=== PATIENT | male | born 1985 | race Caucasian/White ===

== ENCOUNTER 2018-12-01 15:52 | Inpatient (IN) | payer OTHER ==
[~2018-12-01] VITALS: Ht 185.4 cm; Wt 104.3 kg
--- NOTE | 2018-12-01 15:40 | NUR ---
MS RN NOTES RECEIVED REPORT FROM RNFABIO AT [facility]. PT WILL ARRIVE IN 1 HOUR
--- NOTE | 2018-12-01 16:50 | NUR ---
MS RN NOTES PT ARRIVED VIA GURNEY WITH AMBULANCE CREW FROM [facility]. DR OSUNA NOTIFIED. DR ASSESSED PT AT BEDSIDE. DR AWARE OF HOME MEDS. INITIAL ADMISSION INTERVIEW DONE. ORIENTED PT TO ROOM. BED IN LOCKED/LOWEST POSITION. CALL LIGHT IN REACH.
[2018-12-01 17:00] VITALS: BP 132/81
[2018-12-01] MEDS ORDERED: ZOLPIDEM TARTRATE 5 MG TABLET PO PRN (17:00)
[2018-12-01] MEDS ORDERED: MAGNESIUM HYDROXIDE 30 ML UDC PO PRN (17:00)
[2018-12-01] MEDS ORDERED: ACETAMINOPHEN 325 MG TABLET PO PRN (17:00)
[2018-12-01] MEDS ORDERED: MAG HYDROX/AL HYDROX/SIMETH 30 ML UDC PO PRN (17:00)
[2018-12-01] MEDS ORDERED: Z GUARD REMEDY 2 OZ OINT TP PRN (17:00)
[2018-12-01] MEDS ORDERED: ONDANSETRON HCL/PF 4 MG/2 ML VIAL IVP PRN (17:00)
--- NOTE | 2018-12-01 17:00 | NUR ---
MS RN NOTES PT REFUSED ADMITTING PICS OF WOUNDS
[2018-12-01 17:48] LABS: BASOPHILS % (AUTO) 0.2 % (0.0-2.0); HEMATOCRIT 45 % (39-51); HEMOGLOBIN 15.1 g/dL (13.5-17.5); LYMPHOCYTES # (AUTO) 2.2 /CMM (0.8-4.8); LYMPHOCYTES % (AUTO) 23.1 % (20.0-44.0); MEAN CORPUSCULAR HGB CONC 34 g/dl (31.0-36.0); MEAN CORPUSCULAR VOLUME 97 fL (80-96); MONOCYTES # (AUTO) 0.7 /CMM (0.1-1.30); MONOCYTES % (AUTO) 6.9 % (2.0-12.0); NEUTROPHILS # (AUTO) 6.5 /CMM (1.8-8.9); NEUTROPHILS % (AUTO) 67.8 % (43.0-81.0); PLATELET COUNT (AUTO) 295 /CMM (150-450); WHITE BLOOD COUNT (AUTO) 9.7 K/uL (4.3-11.0)
[2018-12-01 18:07] LABS: CALCIUM, SERUM 8.4 mg/dL (8.5-10.1); CREATININE 0.9 mg/dL (0.6-1.3); POTASSIUM 3.8 mmol/L (3.5-5.1)
[2018-12-01 18:12] LABS: ALBUMIN 3.4 g/dL (3.4-5.0); BILIRUBIN,TOTAL 0.3 mg/dL (0.2-1.0); TOTAL PROTEIN, SERUM 7.1 g/dL (6.4-8.2)
[2018-12-01] MEDS ORDERED: FEE PK DOSING 1 MIN EA MC ONE (18:29)
--- NOTE | 2018-12-01 19:33 | NUR ---
MS RN NOTES ENDORSED PT TO PM NURSE FOR BASIA. PT RESTING IN BED. ALL NEEDS ATTENDED TO.
[2018-12-01 20:00] VITALS: BP 129/76
[2018-12-01] MEDS ORDERED: VANCOMYCIN 1.25 GM in IV D5W 500 ML IV SCH ×2 (20:00→22:49)
--- NOTE | 2018-12-01 20:00 | NUR ---
MS1/RN RECEIVED PATIENT AWAKE, ALERT, ORIENTED, CALM AND COMFORTABLE, NO C/O PAIN, NO DISTRESS NOTED, CALL LIGHT IN REACH. WILL MONITOR.
[2018-12-01] MEDS ORDERED: CLON0.1T PO (20:11)
[2018-12-01] MEDS ORDERED: OLAN15TA3 PO (20:11)
[2018-12-01] MEDS ORDERED: LORA1TAB PO (20:11)
[2018-12-01] MEDS ORDERED: OLAN5TAB3 PO (20:11)
[2018-12-01] MEDS: METRONIDAZOLE 500MG/ NS 100ML 500 MG in PREMIX 1 EA IV SCH (21:02)
[2018-12-01] MEDS: OLANZAPINE 5 MG TABLET PO SCH (21:30)
[2018-12-01] MEDS: LORAZEPAM 1 MG TABLET PO SCH (21:30)
[2018-12-01 21:38] LABS: APPEARANCE,URINE SL CLOUDY (CLEAR); BILIRUBIN,URINE NEGATIVE (NEGATIVE); BLOOD, URINE NEGATIVE Ery/uL (NEGATIVE); COLOR,URINE YELLOW (YELLOW); KETONES,URINE NEGATIVE (NEGATIVE); LEUKOCYTE ESTERASE ,URINE NEGATIVE (NEGATIVE); NITRITE, URINE NEGATIVE (NEGATIVE); PH,URINE 5.5 (5.0-8.0); PROTEIN,URINE NEGATIVE (NEGATIVE); UGLUCOSE NEGATIVE (NEGATIVE); UROBILINOGEN,URINE 0.2 EU/dL (0.2)
--- NOTE | 2018-12-01 21:53 | NUR ---
MS1/RN PATIENT WAS MOVED TO 117-1 TO ACCOMMODATE PATIENT REQUIRING A SITTER.
[2018-12-01] MEDS: LEVOFLOXACIN 500 MG /D5W 100ML 500 MG in PREMIX 1 EA IV SCH (22:34)
--- NOTE | 2018-12-02 00:53 | NUR ---
MS1/RN PATIENT IS SLEEPING AT THIS TIME, AROUSABLE, APPEAR COMFORTABLE, NO DISTRESS NOTED, CALL LIGHT IN REACH. WILL CONTINUE TO MONITOR.
[2018-12-02] MEDS: METRONIDAZOLE 500MG/ NS 100ML 500 MG in PREMIX 1 EA IV SCH ×3 (03:53→19:11)
[2018-12-02 04:00] VITALS: BP 120/77
--- NOTE | 2018-12-02 06:25 | NUR ---
MS1/RN PATIENT IS STILL SLEEPING AT THIS TIME, APPEAR COMFORTABLE, NO DISTRESS NOTED, ALL NEEDS ATTENDED AT THIS TIME, WILL CONTINUE TO MONITOR.
--- NOTE | 2018-12-02 07:05 | NUR ---
MS RN OPENING NOTES RECEIVED PT LYING ON BED.ALERT/ORIENTED X4.ON ROOM AIR,TOLERATING WELL.NO SOB AND ACUTE DISTRESS NOTED.IV LINE IS ON RIGHT AC,SITE IS CLEAN,DRY AND INTACT.SAFETY IS MAINTAINED AT ALL TIMES.BED IS IN LOW POSITION AND LOCKED.CALL LIGHT IS WITHIN REACH.WILL CONTINUE TO MONITOR THE PT CLOSELY.
[2018-12-02 07:21] LABS: BASOPHILS # (AUTO) 0.1 /CMM (0.0-0.2); BASOPHILS % (AUTO) 1.1 % (0.0-2.0); EOSINOPHILS % (AUTO) 2.1 % (0.0-6.0); HEMATOCRIT 43 % (39-51); HEMOGLOBIN 14.6 g/dL (13.5-17.5); LYMPHOCYTES # (AUTO) 1.7 /CMM (0.8-4.8); LYMPHOCYTES % (AUTO) 19.3 % (20.0-44.0); MEAN CORPUSCULAR HGB CONC 34 g/dl (31.0-36.0); MEAN CORPUSCULAR VOLUME 97 fL (80-96); MONOCYTES # (AUTO) 0.8 /CMM (0.1-1.30); MONOCYTES % (AUTO) 8.5 % (2.0-12.0); NEUTROPHILS # (AUTO) 6.2 /CMM (1.8-8.9); PLATELET COUNT (AUTO) 276 /CMM (150-450); RED BLOOD CELL COUNT(AUTO) 4.38 MIL/uL (4.5-6.0)
[2018-12-02 07:32] LABS: CALCIUM, SERUM 8.8 mg/dL (8.5-10.1); CREATININE 0.8 mg/dL (0.6-1.3); POTASSIUM 3.8 mmol/L (3.5-5.1)
[2018-12-02 07:50] LABS: THYROID STIMULATING HORMONE 7.469 uIU/mL (0.358-3.74)
[2018-12-02 08:00] VITALS: BP 122/79
[2018-12-02] MEDS ORDERED: VANCOMYCIN 1.25 GM in IV D5W 500 ML IV SCH (08:00)
[2018-12-02] MEDS: OLANZAPINE 5 MG TABLET PO SCH ×2 (08:24→21:02)
[2018-12-02] MEDS: CLONIDINE HCL 0.1 MG TABLET PO SCH ×2 (08:24→17:01)
[2018-12-02] MEDS: HYDROCODONE/APAP 5/325MG 1 EACH TABLET PO PRN ×3 (10:20→21:02)
--- NOTE | 2018-12-02 12:15 | NUR ---
MS RN NOTES CATHY ACUÑA SEEN THE PT AND DONE THE I &D ON LEFT THIGH.PT TOLERATED WELL AND SEND THE SAMPLE FOR WOUND CULTURE.
[2018-12-02] MEDS ORDERED: LIDOCAINE 2%-EPI 1:100,000 30 ML VIAL TP STA (12:24)
[2018-12-02] MEDS: LEVOFLOXACIN 500 MG /D5W 100ML 500 MG in PREMIX 1 EA IV SCH (17:01)
--- NOTE | 2018-12-02 18:37 | NUR ---
MS RN CLOSING NOTES PT IS LYING ON BED.ALERT/ORIENTED X2.ON ROOM AIR,TOLERATING WELL.RESPIRATION IS EVEN AND NON LABORED.I&D HAS DONE.NO PAIN NOTED FOR NOW.ALL THE DUE MEDS ARE GIVEN.ENDORSED TO ROUTE MANAGER RN FOR [facility].
--- NOTE | 2018-12-02 20:17 | NUR ---
RN MS OPENING NOTES RECEIVED PT IN BED, AWAKE ALERT ORIENTEDX4 BREATHING EVEN AND UNLABORED ON ROOM AIR. NO COUGH CONGESTION OR SOB. NO COMPLAINT OF PAIN OR DISCOMFORT AT THIS TIMES, IV ACCESS ON THE R AC SL. BED IN LOEST LOCKED POSITION ,CALL LIGHT WITHIN REACH AT ALL TIMES WILL CONTINUE TO MONITOR.
[2018-12-02 21:00] VITALS: BP 114/85
[2018-12-02] MEDS: LORAZEPAM 1 MG TABLET PO SCH (21:02)
[2018-12-03] MEDS: METRONIDAZOLE 500MG/ NS 100ML 500 MG in PREMIX 1 EA IV SCH ×2 (01:08→09:21)
[2018-12-03] MEDS: HYDROCODONE/APAP 5/325MG 1 EACH TABLET PO PRN ×2 (01:20→09:23)
[2018-12-03] MEDS ORDERED: VANCOMYCIN 1.25 GM in IV D5W 500 ML IV SCH (04:00)
[2018-12-03 05:00] VITALS: BP 126/81
--- NOTE | 2018-12-03 06:54 | NUR ---
RN MS CLOSING NOTES PT REMAINS IN BED, AWAKE ALERT ORIENTEDX4 BREATHING EVEN AND UNLABORED ON ROOM AIR. NO COUGH CONGESTION OR SOB. NO COMPLAINT OF PAIN OR DISCOMFORT AT THIS TIMES, IV ACCESS ON THE R FA #20 SL. L THIGH DRESSING CHANGED. BED IN LOWEST LOCKED POSITION ,CALL LIGHT WITHIN REACH AT ALL TIMES WILL ENDORSE TO DAY NURSE FOR [facility]IA
[2018-12-03 07:07] LABS: BASOPHILS % (AUTO) 0.7 % (0.0-2.0); EOSINOPHILS % (AUTO) 4.3 % (0.0-6.0); HEMATOCRIT 43 % (39-51); HEMOGLOBIN 14.6 g/dL (13.5-17.5); LYMPHOCYTES % (AUTO) 31.3 % (20.0-44.0); MEAN CORPUSCULAR HGB CONC 34 g/dl (31.0-36.0); MEAN CORPUSCULAR VOLUME 98 fL (80-96); MONOCYTES # (AUTO) 0.5 /CMM (0.1-1.30); MONOCYTES % (AUTO) 8.4 % (2.0-12.0); NEUTROPHILS # (AUTO) 3.5 /CMM (1.8-8.9); NEUTROPHILS % (AUTO) 55.3 % (43.0-81.0); PLATELET COUNT (AUTO) 264 /CMM (150-450); RED BLOOD CELL COUNT(AUTO) 4.38 MIL/uL (4.5-6.0); WHITE BLOOD COUNT (AUTO) 6.4 K/uL (4.3-11.0)
[2018-12-03 07:09] LABS: CALCIUM, SERUM 8.5 mg/dL (8.5-10.1); CREATININE 0.8 mg/dL (0.6-1.3); MAGNESIUM 2.1 mg/dL (1.8-2.4); PHOSPHORUS 3.6 mg/dL (2.5-4.9); POTASSIUM 3.7 mmol/L (3.5-5.1)
[2018-12-03 08:00] VITALS: BP 116/86
[2018-12-03 09:21] VITALS: BP 124/82
[2018-12-03] MEDS: CLONIDINE HCL 0.1 MG TABLET PO SCH (09:21)
[2018-12-03] MEDS: OLANZAPINE 5 MG TABLET PO SCH (09:22)
[2018-12-03] MEDS ORDERED: SULF1TAB47 PO (11:59)
[2018-12-03] MEDS ORDERED: HYDR-4384 PO (11:59)
--- NOTE | 2018-12-03 13:50 | NUR ---
Reviewed discharge instructions and current med list with patient and his mother. Pt stated he had no question or concerns at this time. #[id number] d/c with tip intact. dry dsg applied to old PIV. Walked patient to the front door for discharge with mother by this side. Signing off care for this pt.
== END 2018-12-03 13:30 | disposition home or self-care (01) | DRG 383 ==
LOC: MEDSG1 16:38
PROVIDERS: ADMIT Student in an Organized Health Care Education/Training Program; ATTEND Student in an Organized Health Care Education/Training Program
PROC: 0H9JXZZ Drainage of Left Upper Leg Skin, External Approach (ICD-10-PCS; principal; 2018-12-02)
DX: L02.416 Cutaneous abscess of left lower limb (principal); L02.214 Cutaneous abscess of groin; L03.314 Cellulitis of groin; I10 Essential (primary) hypertension; E03.9 Hypothyroidism, unspecified; F31.9 Bipolar disorder, unspecified; Z88.0 Allergy status to penicillin; F41.9 Anxiety disorder, unspecified; F17.210 Nicotine dependence, cigarettes, uncomplicated; Z82.49 Family history of ischemic heart disease and other diseases of the circulatory system
CPT/HCPCS: 36415; 80048-TC; 80053-TC; 80061-TC; 80202-TC; 80305; 81000-TC; 83605-TC; 83735-TC; 84100-TC; 84439-TC; 84443-TC; 85025-TC; 87040-TC; 87070-TC; 87081-TC; 87186-TC; 87806; A4216; A6402; A6407; G0378; J1956; J3370; J3490; J7030; J7040; J7060

== ENCOUNTER 2021-04-16 14:07 | Emergency (ER) | payer MEDICAID, OTHER ==
[~2021-04-16] VITALS: Ht 185.4 cm; Wt 105.7 kg
[~2021-04-16 14:07] MED LIST: CLON0.1T PO; HYDR-4384 PO; LORA1TAB PO; OLAN15TA3 PO; OLAN5TAB3 PO; SULF1TAB47 PO
--- NOTE | 2021-04-16 14:07 | NUR ---
PT BIBPA FROM [facility] C/O SI IDEATION NO SPECIFIC PLAN. PT IS AAOX4, NOT IN RESPIRATORY DISTRESS, V/S STABLE, KEPT RESTED AND COMFORTABLE. SITTER AT BEDSIDE. WILL CONTINUE TO MONITOR.
--- NOTE | 2021-04-16 14:15 | NUR ---
URINAL GIVEN BUT UNABLE TO PROVIDE URINE SPECIMEN THIS TIME.
--- NOTE | 2021-04-16 14:19 | NUR ---
SEEN AND EXAMINED BY .
--- NOTE | 2021-04-16 14:31 | NUR ---
ER PHLEB AT BEDSIDE FOR BLOOD DRAW.
[2021-04-16 14:40] LABS: BASOPHILS % (AUTO) 0.4 % (0.0-2.0); EOSINOPHILS % (AUTO) 1.6 % (0.0-6.0); HEMATOCRIT 43 % (39-51); HEMOGLOBIN 14.1 g/dL (13.5-17.5); LYMPHOCYTES % (AUTO) 30.8 % (20.0-44.0); MEAN CORPUSCULAR HGB CONC 33 g/dl (31.0-36.0); MEAN CORPUSCULAR VOLUME 92 fL (80-96); MONOCYTES # (AUTO) 0.8 /CMM (0.1-1.30); MONOCYTES % (AUTO) 8.3 % (2.0-12.0); NEUTROPHILS # (AUTO) 5.7 /CMM (1.8-8.9); NEUTROPHILS % (AUTO) 58.9 % (43.0-81.0); PLATELET COUNT (AUTO) 289 /CMM (150-450); RED BLOOD CELL COUNT(AUTO) 4.61 MIL/uL (4.5-6.0); WHITE BLOOD COUNT (AUTO) 9.7 K/uL (4.3-11.0)
[2021-04-16 14:56] LABS: CALCIUM, SERUM 8.9 mg/dL (8.5-10.1); CARBON DIOXIDE 24 mmol/L (21-32); CHLORIDE 105 mmol/L (98-107); CREATININE 0.9 mg/dL (0.6-1.3); GLUCOSE 113 mg/dL (74-106); POTASSIUM 3.4 mmol/L (3.5-5.1); SODIUM SERUM 139 mmol/L (136-145); UREA NITROGEN, BLOOD 10 mg/dL (7-18)
[2021-04-16 15:11] LABS: ALANINE AMINOTRANSFERASE 30 U/L (12-78); ALBUMIN 3.7 g/dL (3.4-5.0); ALKALINE PHOSPHATASE 105 U/L (46-116); ASPARTATE AMINOTRANSFERASE 21 U/L (15-37); BILIRUBIN,DIRECT 0.1 mg/dL (0.0-0.2); BILIRUBIN,TOTAL 0.2 mg/dL (0.2-1.0); TOTAL PROTEIN, SERUM 7.2 g/dL (6.4-8.2)
[2021-04-16 15:12] LABS: ACETAMINOPHEN < 0 ug/ml (10-30); ALCOHOL, BLOOD < 3 mg/dL (0-0)
[2021-04-16 16:05] LABS: BILIRUBIN,URINE Negative (NEGATIVE); COLOR,URINE YELLOW (YELLOW); LEUKOCYTE ESTERASE ,URINE Small (NEGATIVE); NITRITE, URINE Negative (NEGATIVE); PROTEIN,URINE Negative (NEGATIVE); UGLUCOSE Negative (NEGATIVE); UROBILINOGEN,URINE 0.2 EU/dL (0.2)
[2021-04-16 16:06] LABS: BACTERIA,URINE None seen /HPF (None Seen); SQUAMOUS EPITHELIAL CELL,UR Few /HPF (None Seen)
[2021-04-16] MEDS ORDERED: SULFAMETH/TRIMETH 800/160 MG 1 UDTAB TABLET PO ONE (16:30)
[2021-04-16] MEDS ORDERED: POTASSIUM CHLORIDE 20 MEQ TAB.PRT.SR PO ONE ×2 (16:30→17:03)
[2021-04-16] MEDS ORDERED: SULFAMETH/TRIMETH 800/160 MG 1 UDTAB TABLET ONE (17:03)
--- NOTE | 2021-04-16 17:07 | NUR ---
BALA CASILLAS [phone] WILL BE HERE IN AN HOUR OR SO.
--- NOTE | 2021-04-16 17:10 | NUR ---
FOOD TRAY PROVIDED.
--- NOTE | 2021-04-16 18:12 | NUR ---
[facility]
[2021-04-16 21:40] VITALS: BP 132/81
--- NOTE | 2021-04-16 23:01 | NUR ---
BETH CURIEL FROM [facility], PT OK TO GO TO [facility] FOR REPORT [phone] UNIT 2
--- NOTE | 2021-04-16 23:05 | NUR ---
[facility] CALLED FOR TRANSPORT. ETA 15-30 MINUTES.
--- NOTE | 2021-04-16 23:10 | NUR ---
CALLED IN REPORT TO KRISTIE DE LA VEGA AT [facility]
== END 2021-04-17 00:45 ==
LOC: ER 14:23
DX: R45.851 Suicidal ideations (principal); E87.6 Hypokalemia; N30.00 Acute cystitis without hematuria; I10 Essential (primary) hypertension; F25.0 Schizoaffective disorder, bipolar type; Z88.0 Allergy status to penicillin; Z79.899 Other long term (current) drug therapy; Z20.822 Contact with and (suspected) exposure to COVID-19
CPT/HCPCS: 36415; 80048; 80076; 80143; 80307; 80320; 81001; 85025; 87086; 87426; 99285; C9803; G0480